=== PATIENT | male | born 1950 | race Caucasian/White ===

== ENCOUNTER 2019-05-14 10:02 | Day surgery (SDC) | payer OTHER ==
[2019-05-11 09:27] VITALS: BMI 25.1
[~2019-05-14 10:02] MED LIST: LACTATED RINGERS 1,000 ML IV SCH
[2019-05-14 10:39] VITALS: TEMP 97
[2019-05-14] MEDS ORDERED: LIDOCAINE 1% 20 ML VIAL (10MG/ML) FOR IV START INTRADERMA ONE (10:39)
[2019-05-14] MEDS ORDERED: PROPOFOL 10 MG/ML 20 ML VIAL IV ONE (11:26)
[2019-05-14] MEDS ORDERED: GLYCOPYRROLATE 0.2 MG/ML 2 ML VIAL ONE (11:26)
[2019-05-14] MEDS ORDERED: LIDOCAINE 1% INJ 10MG/ML (20 ML MDV) ONE (11:26)
--- NOTE | 2019-05-14 12:08 | P.PCN ---
Date of Procedure: 05/14/19 Description of Procedure: BRIEF HISTORY: Patient is a 69-year-old pleasant male scheduled for an elective colonoscopy as a part of surveillance for a history of colon polyps. Denies any change in bowel habits, constipation, diarrhea or blood per rectum. No family history of colon cancer. Believes his last colonoscopy was 10-12 years ago and does report a prior history of polyps. PROCEDURE PERFORMED: Colonoscopy with polypectomy. PREOPERATIVE DIAGNOSIS: Personal history of colon polyps, last colonoscopy 10-12 years ago. ESTIMATED BLOOD LOSS: Minimal. IV sedation per Anesthesia. PROCEDURE: After informed consent was obtained, the patient, was brought into the endoscopy unit. IV sedation was administered by Anesthesia under continuous monitoring. Digital rectal examination was normal. Initially the Olympus CF-190 flexible video colonoscope was then inserted in the rectum, gradually advanced into the cecum without any difficulty. Careful examination was performed as the scope was gradually being withdrawn. Ileocecal valve and the appendiceal orifice were vis ualized and appeared normal. Terminal ileum was intubated and appeared normal. Retroflexion in the cecum was negative for any polyps or masses. Prep was excellent. Mucosa of the cecum, ascending colon, transverse colon, descending colon, sigmoid colon, and rectum appeared normal. Retroflexion was performed in the rectum and no lesions were seen. Diminutive 2 mm polyps removed with cold forcep polypectomy from the ascending colon, descending colon and sigmoid. Mild left-sided diverticulosis noted. The patient tolerated the procedure well. IMPRESSION: 3 diminutive polyps removed from the ascending colon, descending colon and sigmoid colon with cold forcep polypectomy. Mild left-sided diverticulosis. RECOMMENDATIONS: Findings of this examination were discussed with the patient. Okay to resume high-fiber diet. Await pathology from polypectomy. Interest. Repeat colonoscopy in 3-5 years pending pathology.
[2019-05-14 12:36] VITALS: BP 133/88; PULSE 58; RESP 16
== END 2019-05-14 12:45 | disposition home or self-care (01) ==
LOC: ORWHC2ENDO 10:02
PROVIDERS: ATTEND Internal Medicine
DX: Z12.11 Encounter for screening for malignant neoplasm of colon (principal); Z86.010 Personal history of colon polyps; K57.30 Diverticulosis of large intestine without perforation or abscess without bleeding; D12.2 Benign neoplasm of ascending colon; D12.4 Benign neoplasm of descending colon; D12.5 Benign neoplasm of sigmoid colon; Z79.1 Long term (current) use of non-steroidal anti-inflammatories (NSAID); Z79.899 Other long term (current) drug therapy; E78.5 Hyperlipidemia, unspecified; K21.9 Gastro-esophageal reflux disease without esophagitis; Z79.51 Long term (current) use of inhaled steroids; Z87.891 Personal history of nicotine dependence
CPT/HCPCS: 88305; 45380; J2001; J2704

== ENCOUNTER → 2022-09-29 | Outpatient (CLI) | payer OTHER ==
--- NOTE | 2022-09-29 15:42 | CT ---
EXAMINATION TYPE: CT sinus wo con DATE OF EXAM: 09/29/2022 COMPARISON: None HISTORY: chronic sinus drainage cough CT DLP: 658 mGycm CONTRAST: 0 mL of Isovue 300 The paranasal sinuses are examined in the axial plane at 2 mm thick sections. Reconstructed images i n the coronal plane were obtained. There is dental amalgam scatter artifact Mucosal thickening is through the inferior left maxillary sinus. Correlate for left maxillary sinusit is. The ethmoid air cells are clear. The sphenoid sinuses are clear. The frontal sinuses are clear . The septum is evaluated. There is septal deviation to the right. The ostiomeatal units are patent. There may be prior left medial orbital wall fracture. IMPRESSIONS: 1. Clinical correlation for acute left maxillary sinusitis
== END | disposition home or self-care (01) ==
LOC: RADCTMAIN 12:08
PROVIDERS: ATTEND Internal Medicine Critical Care Medicine
DX: J01.00 Acute maxillary sinusitis, unspecified (principal); R05.3 Chronic cough
CPT/HCPCS: 70486